=== PATIENT | female | born 1965 | race American Indian/Alaskan Native ===

== ENCOUNTER 2016-11-15 02:05 | Inpatient (IN) | payer OTHER ==
[2016-11-15] MEDS ORDERED: NACL 0.9% 1000 ML 1,000 ML ONE ×2 (02:34→07:48)
[2016-11-15 02:46] LABS: Basophils % (Auto) 0.6 % (0.0-1.8); Eosinophils % (Auto) 0.5 % (0.0-4.3); Hematocrit 44.8 % (30.3-42.9); Hemoglobin 14.6 gm/dl (10.1-14.3); Mean Corpuscular HGB Conc 33 % (30-34); Mean Corpuscular Hemoglobin 28 pg (28-32); Mean Corpuscular Volume 85 fl (79-97); Platelet Count 185 K/mm3 (140-440); Red Blood Count 5.28 M/mm3 (3.65-5.03); Red Cell Distribution Width 15.3 % (13.2-15.2); White Blood Count 8.7 K/mm3 (4.5-11.0)
[2016-11-15 03:01] LABS: Anion Gap 23 mmol/L; BUN/Creatinine Ratio 22.22; Blood Urea Nitrogen 20 mg/dL (7-17); Carbon Dioxide 21 mmol/L (22-30); Chloride 89.1 mmol/L (98-107); Potassium 5.1 mmol/L (3.6-5.0); Sodium 128 mmol/L (137-145)
[2016-11-15 03:09] LABS: Glucose 1079 mg/dL (65-100)
[2016-11-15] MEDS ORDERED: NACL 0.9% 1000 ML 1,000 ML IV ONE (03:09)
[2016-11-15 03:36] LABS: Bilirubin,Urine NEG (Negative); Blood,Urine NEG (Negative); Ketones,Urine TR mg/dL (Negative); Leukocyte Esterase,Urine TR (Negative); Nitrite,Urine NEG (Negative); Protein,Urine <15 mg/dL mg/dL (Negative); Urobilinogen,Urine < 2.0 mg/dL (<2.0)
--- NOTE | 2016-11-15 03:40 | Emergency Department Report ---
ED General Adult HPI - General Chief complaint: Hyperglycemia Stated complaint: HYPERGLYCEMIA Time Seen by Provider: 11/15/16 03:16 Source: patient, EMS (ems notes not available at time of chart dictation), RN notes reviewed Mode of arrival: Stretcher Limitations: No Limitations - History of Present Illness Initial comments: This is a 51-year-old female. She is previously unknown to me. She has a history of bipolar and diabetes. The patient is brought to the hospital by EMS for hypoglycemia, malaise and weakness. The patient was of mild headache, dizziness, nausea, vomiting, sensation of being very thirsty, urinary frequency. Headache has been present for weeks to months. Also complains of abdominal discomfort. Abdominal discomfort is off and on. The abdominal discomfort worsens with palpation and decreases with rest. -: Gradual Location: abdomen Severity scale (0 -10): 5 Quality: aching Consistency: intermittent Improves with: rest Worsens with: movement Associated Symptoms: headaches, loss of appetite, malaise, weakness - Related Data Allergies Allergy/AdvReac Type Severity Reaction Status Date / Time No Known Allergies Allergy Unverified 11/15/16 02:16 ED Review of Systems ROS: Stated complaint: HYPERGLYCEMIA Other details as noted in HPI Constitutional: malaise, weakness ENT: denies: epistaxis Respiratory: see HPI Cardiovascular: denies: chest pain Gastrointestinal: abdominal pain Genitourinary: frequency Musculoskeletal: denies: back pain Skin: denies: lesions Neurological: weakness Psychiatric: anxiety ED Past Medical Hx - Past Medical History Hx Diabetes: Yes Hx Psychiatric Treatment: Yes (Bipolar) - Social History Smoking Status: Current Every Day Smoker Substance Use Type: None ED Physical Exam - General Limitations: No Limitations General appearance: alert, in no apparent distress - Head Head exam: Present: atraumatic, normocephalic - Eye Eye exam: Present: normal appearance, EOMI. Absent: nystagmus - ENT ENT exam: Present: normal exam, normal orophraynx, mucous membranes moist, normal external ear exam - Neck Neck exam: Present: normal inspection, full ROM. Absent: tenderness, meningismus - Respiratory Respiratory exam: Present: normal lung sounds bilaterally. Absent: respiratory distress, wheezes, rales, rhonchi, stridor - Cardiovascular Cardiovascular Exam: Present: regular rate, normal rhythm, normal heart sounds. Absent: bradycardia, tachycardia, irregular rhythm, systolic murmur, diastolic murmur, rubs, gallop - GI/Abdominal GI/Abdominal exam: Present: soft, tenderness, normal bowel sounds, other. Absent: distended, guarding, rebound, rigid, pulsatile mass - Extremities Exam Extremities exam: Present: normal inspection, full ROM, normal capillary refill. Absent: tenderness, pedal edema, joint swelling, calf tenderness - Back Exam Back exam: Present: normal inspection, full ROM. Absent: tenderness, CVA tenderness (R), CVA tenderness (L), muscle spasm, paraspinal tenderness, vertebral tenderness - Neurological Exam Neurological exam: Present: alert, oriented X3, normal gait, other (Extraocular movements intact. Tongue midline. No facial droop. Facial sensation intact to light touch in the V1, V2, V3 distribution bilaterally. 5 and 5 strength in 4 extremities.. Sensation is intact to light touch in 4 extremities.). Absent : motor sensory deficit - Psychiatric Psychiatric exam: Present: normal affect, normal mood - Skin Skin exam: Present: warm, dry, intact, normal color. Absent: rash ED Course Vital Signs 11/15/16 02:29 Temperature 98.1 F Pulse Rate 85 Respiratory 16 Rate Blood Pressure 152/78 [Right] O2 Sat by Pulse 100 Oximetry - Reevaluation(s) Reevaluation #1: 11/15/16 05:42 Differential diagnosis: Pneumonia, urinary tract infection, diabetic ketoacidosis, intra-abdominal infection, hyperosmolar state Assessment and plan: 51-year-old female with polyuria, polydipsia, market hyperglycemia with glucose greater than 1000, Dr. Calero with diabetic ketoacidosis, but consistent and suggestive of hyperosmolar state. X-ray the chest is negative. Urinalysis is negative. Insulin drip is ordered, insulin dose is ordered, IV fluids are ordered. Has acute on chronic abdominal pain, highly doubt acute intra-abdominal disease, but a noncontrast CT scan of the abdomen and pelvis is ordered. The case is discussed with the Hospital physician, Dr. Epperson, who accepts the patient to his service. Inpatient team will follow up on CT scan of abdomen and pelvis. ED Medical Decision Making - Lab Data Result diagrams: 11/15/16 02:23 11/15/16 02:23 Vital Signs 11/15/16 02:29 Temperature 98.1 F Pulse Rate 85 Respiratory 16 Rate Blood Pressure 152/78 [Right] O2 Sat by Pulse 100 Oximetry Labs 11/15/16 11/15/16 11/15/16 02:23 02:23 02:23 WBC 8.7 RBC 5.28 H Hgb 14.6 H Hct 44.8 H MCV 85 MCH 28 MCHC 33 RDW 15.3 H Plt Count 185 Lymph % (Auto) 16.4 [place] % (Auto) 4.8 Eos % (Auto) 0.5 Baso % (Auto) 0.6 Lymph # 1.4 [place] # 0.4 Eos # 0.0 Baso # 0.1 Seg Neutrophils % 77.7 H Seg Neutrophils # 6.8 VBG pH 7.336 Sodium 128 L Potassium 5.1 H Chloride 89.1 L Carbon Dioxide 21 L Anion Gap 23 BUN 20 H Creatinine 0.9 Estimated GFR > 60 BUN/Creatinine Ratio 22.22 Glucose 1079 H* Calcium 10.0 Total Bilirubin Direct Bilirubin Indirect Bilirubin AST ALT Alkaline Phosphatase Total Protein Albumin Albumin/Globulin Ratio Lipase Urine Color Urine Turbidity Urine pH Ur Specific Ayr Urine Protein Urine Glucose (UA) Urine Ketones Urine Blood Urine Nitrite Urine Bilirubin Urine Urobilinogen Ur Leukocyte Esterase Urine WBC (Auto) Urine RBC (Auto) U Epithel Cells (Auto) 11/15/16 11/15/16 02:29 04:00 WBC RBC Hgb Hct MCV MCH MCHC RDW Plt Count Lymph % (Auto) [place] % (Auto) Eos % (Auto) Baso % (Auto) Lymph # [place] # Eos # Baso # Seg Neutrophils % Seg Neutrophils # VBG pH Sodium Potassium Chloride Carbon Dioxide Anion Gap BUN Creatinine Estimated GFR BUN/Creatinine Ratio Glucose Calcium Total Bilirubin 0.8 Direct Bilirubin < 0.2 Indirect Bilirubin 0.6 AST 6 ALT 12 Alkaline Phosphatase 163 H Total Protein 7.4 Albumin 4.1 Albumin/Globulin Ratio 1.2 Lipase 17 Urine Color Colorless Urine Turbidity Clear Urine pH 7.0 Ur Specific Ayr 1.026 Urine Protein <15 mg/dl Urine Glucose (UA) >=500 Urine Ketones Tr Urine Blood Neg Urine Nitrite Neg Urine Bilirubin Neg Urine Urobilinogen < 2.0 Ur Leukocyte Esterase Tr Urine WBC (Auto) 2.0 Urine RBC (Auto) 1.0 U Epithel Cells (Auto) < 1.0 - Radiology Data Radiology results: pending, report reviewed, image reviewed interpreted by me: X-ray of the chest is negative for acute disease. Noncontrast CT scan of the abdomen and pelvis interpretation is pending at this time. Critical Care Time: Yes Critical care time in (mins) excluding proc time.: 35 Critical care attestation.: If time is entered above; I have spent that time in minutes in the direct care of this critically ill patient, excluding procedure time. Critical Care Time: Critical care time includes multiple bedside evaluations, interpretation of laboratory studies, radiology studies, time spent managing patient with critically elevated blood sugar requiring initiation of insulin drip. This does not include procedure time. ED Disposition Clinical Impression: Hyperosmolar non-ketotic state in patient with type 2 diabetes mellitus Disposition: OP ADMITTED IP TO THIS HOSP Is pt being admited?: Yes Condition: Good Instructions: Diabetes Mellitus Type 2 in Adults (ED) Referrals: PRIMARY CARE, [Primary Care Provider] - 3-5 Days
[2016-11-15] MEDS ORDERED: ZOFRAN IV PRN (04:59)
[2016-11-15] MEDS ORDERED: MILK OF MAGNESIA PO PRN (04:59)
[2016-11-15] MEDS ORDERED: DULCOLAX PR PRN (04:59)
[2016-11-15] MEDS ORDERED: D50W (25GM) IV PRN (04:59)
[2016-11-15] MEDS ORDERED: NovoLIN R 100 UNITS in NACL 0.9% 99 ML IV SCH (05:00)
[2016-11-15] MEDS ORDERED: PROAIR IH PRN (05:03)
--- NOTE | 2016-11-15 05:11 | History and Physical Report ---
History of Present Illness Date of examination: 11/15/16 Chief complaint: Urinary frequency and excessive thirst and weakness for 1 week History of present illness: 51-year-old obese -[place]i female with history of type 2 diabetes for the past 1 year, I Polar disorder, asthma and peptic ulcer disease presents to the emergency department with above complaint was found to have a blood sugar of more than 1000. She is admitted for management of uncontrolled type 2 diabetes. Patient appears to be noncompliant with her diabetes medicine. She was started on metformin a month ago but she quit taking as it was, causing abdominal pain he time she takes it the past 1 week she has been having excessive urination excessive thirst and since yesterday started vomiting. She denies any fever or chills sore throat dysphagia nasal congestion or headaches. She denies any abdominal pain hematemesis melena. As stated above she had one episode of vomiting yesterday and 1 today Denies any exertional chest pain palpitations or syncope Denies cough or shortness of breath Denies dysuria, hematuria Past History Past Medical History: diabetes, other (asthma, bipolar disorder, peptic ulcer disease) Past Surgical History: No surgical history Social history: smoking Family history: diabetes Medications and Allergies Allergies Allergy/AdvReac Type Severity Reaction Status Date / Time No Known Allergies Allergy Unverified 11/15/16 02:16 Active Meds: Active Medications Acetaminophen (Tylenol) 650 mg PO Q4H PRN PRN Reason: Pain MILD(1-3)/Fever >100.5/LAMA Albuterol (Proair) 2 puff IH QIDRT PRN PRN Reason: Shortness Of Breath Bisacodyl (Dulcolax) 10 mg UT QDAY PRN PRN Reason: Constipation unrelieved by MOM Dextrose (D50w (25gm)) 0 ml IV PRN PRN PRN Reason: Hypoglycemia Glipizide (Glucotrol) 5 mg PO DAILY JESÚS Heparin Sodium (Porcine) (Heparin) 5,000 unit SUB-Q Q8HR JESÚS Potassium Chloride/Dextrose/Sod Cl (D5w/0.45% Nacl/Kcl 20 Meq) 20 meq in 1,000 mls @ 125 mls/hr IV DIRECT JESÚS Insulin Human Regular 100 (units/ Sodium Chloride) 100 mls @ 1 mls/hr IV TITR JESÚS; 1 UNITS/HR PRN Reason: Protocol Magnesium Hydroxide (Milk Of Magnesia) 30 ml PO Q4H PRN PRN Reason: Constipation Ondansetron HCl (Zofran) 4 mg IV Q8H PRN PRN Reason: N/V unrelieved by Reglan Pantoprazole Sodium (Protonix) 40 mg PO DAILY JESÚS Review of Systems All systems: negative (as stated above in the history of present illness) Exam - Constitutional Vitals: Temp Pulse Resp BP Pulse Ox 98.1 F 85 16 152/78 100 11/15/16 02:29 11/15/16 02:29 11/15/16 02:29 11/15/16 02:29 11/15/16 02:29 General appearance: Present: no acute distress, well-nourished, obese - EENT Eyes: Present: PERRL, EOM intact ENT: hearing intact, clear oral mucosa, no thrush - Neck Neck: Present: supple, normal ROM. Absent: masses or JVD - Respiratory Respiratory effort: normal Respiratory: bilateral: CTA - Cardiovascular Rhythm: regular Heart Sounds: Present: S1 & S2 - Extremities Extremities: No edema - Abdominal General gastrointestinal: Present: soft, non-tender. Absent: hepatomegaly, splenomegaly - Rectal Rectal Exam: deferred - Integumentary Integumentary: Present: clear - Musculoskeletal Musculoskeletal: strength equal bilaterally - Psychiatric Psychiatric: appropriate mood/affect - Neurologic Neurologic: no focal deficits, moves all extremities Results - Labs CBC & Chem 7: 11/15/16 02:23 11/15/16 02:23 Labs: Abnormal lab results 11/15/16 11/15/16 Range/Units 02:23 02:23 RBC 5.28 H (3.65-5.03) M/mm3 Hgb 14.6 H (10.1-14.3) gm/dl Hct 44.8 H (30.3-42.9) % RDW 15.3 H (13.2-15.2) % Seg Neutrophils % 77.7 H (40.0-70.0) % Sodium 128 L (137-145) mmol/L Potassium 5.1 H (3.6-5.0) mmol/L Chloride 89.1 L (98-107) mmol/L Carbon Dioxide 21 L (22-30) mmol/L BUN 20 H (7-17) mg/dL Glucose 1079 H* (65-100) mg/dL Assessment and Plan - Patient Problems (1) Hyperosmolar non-ketotic state in patient with type 2 diabetes mellitus Current Visit: Yes Status: Acute Plan to address problem: Her blood sugar at the time of admission was 1079 Start the patient on intravenous insulin drip and we will admit the patient to intensive care unit Will wean off pins IV insulin per protocol as blood sugars drop We will also start the patient on glipizide We will hold metformin for now the patient is complaining of abdominal pain every time she takes it (2) Peptic ulcer disease Current Visit: Yes Status: Acute Plan to address problem: Start the patient on PPI (3) Asthma Current Visit: Yes Status: Acute Qualifiers: Asthma severity: A Asthma complication type: A Plan to address problem: Start the patient on albuterol inhaler as needed (4) Obesity (BMI 35.0-39.9 without comorbidity) Current Visit: Yes Status: Acute
[2016-11-15] MEDS ORDERED: PROVENTIL IH PRN (05:12)
[2016-11-15 05:27] LABS: Alanine Aminotransferase 12 units/L (7-56); Albumin 4.1 g/dL (3.9-5); Albumin/Globulin Ratio 1.2 %; Alkaline Phosphatase 163 units/L (35-129); Bilirubin,Total 0.8 mg/dL (0.1-1.2); Lipase 17 units/L (13-60); Total Protein 7.4 g/dL (6.3-8.2)
[2016-11-15 05:38] LABS: Bilirubin,Direct < 0.2 mg/dL (0-0.2); Bilirubin,Indirect 0.6 mg/dL
--- NOTE | 2016-11-15 05:59 | Cat Scan Report ---
FINAL REPORT PROCEDURE: CT ABDOMEN PELVIS WO CON TECHNIQUE: Computerized axial tomography of the abdomen and pelvis was performed without intravenous contrast. This study is performed without intravascular contrast material and its sensitivity for abdominal and pelvic pathology, including neoplasms, inflammation, abscess, free fluid, thrombosis, arterial dissection and infarction, is reduced compared with a contrast enhanced study. HISTORY: abd pain COMPARISON: No prior studies are available for comparison. FINDINGS: Visualized lower thorax: No significant abnormality. Liver: Normal size and attenuation. Spleen: Normal size and attenuation. Gallbladder and biliary system: Normal. Pancreas: Normal. Adrenals: Normal. Kidneys: Both kidneys have normal size. No hydronephrosis. There is a 2 millimeter stone in the right renal cortex. No renal masses.. GI tract: The stomach is normal. The small bowel has a normal caliber without obstruction. No ileus or enteritis. The cecum, appendix and colon are normal.. Lymph nodes and mesentery: Normal. Vasculature: Normal. Bladder: The urinary bladder is moderately distended.. Reproductive organs: The uterus is enlarged. In the fundus of the uterus there is mixed attenuation with some calcifications. This area is most consistent with a large fibroid measuring up to 4.5 centimeters. The adnexal regions are normal.. Peritoneum: No free fluid. Musculoskeletal structures: No significant abnormality. Other: None. IMPRESSION: There is no evidence of intestinal or urinary tract obstruction. No ileus or enteritis. The appendix is normal. The uterus is enlarged with a suspected large fibroid in the fundus of the uterus. Further evaluation with ultrasound may be of benefit. Right renal calculus measuring 2 millimeters is noted. No hydronephrosis..
[2016-11-15 06:13] LABS: Anion Gap 22 mmol/L; BUN/Creatinine Ratio 23.75; Blood Urea Nitrogen 19 mg/dL (7-17); Calcium 10.2 mg/dL (8.4-10.2); Carbon Dioxide 21 mmol/L (22-30); Chloride 95.7 mmol/L (98-107); Phosphorous 4.3 mg/dL (2.5-4.5); Potassium 4.7 mmol/L (3.6-5.0); Sodium 134 mmol/L (137-145)
[2016-11-15 06:33] LABS: Glucose 807 mg/dL (65-100)
--- NOTE | 2016-11-15 06:37 | Admit Criteria Form ---
Admission Criteria Documentation: DIABETES Clinical Indications for Admission to Inpatient Care (Place 'X' for any and all applicable criteria): Admission is indicated by presence of ALL (if I & II) or ANY ONE (if III or IV) of the following (1)(2)(3)(4): [X]I. Diabetes is uncontrolled as indicated by ANY ONE of the following: [ ]a) Diabetic ketoacidosis as indicated by ALL of the following (8): [ ]i) Hyperglycemia (eg, plasma glucose greater than 200 mg/ dL (11.1 mmol/L)) [ ]ii) Acidosis (eg, arterial pH less than 7.30, serum bicarbonate level less than 15 mEq/L (mmol/L)) [ ]iii) Moderate ketonuria or ketonemia [X]b) Hyperglycemic hyperosmolar state as indicated by ALL of the following(9)(10): [ ]i) Neurologic dysfunction (eg, stupor, coma, hemiparesis , seizure)(13) [X]ii) Plasma glucose greater than 600 mg/dL (33.3 mmol/L) [ ]iii) Serum osmolality greater than 320 mOsm/kg (mmol/kg) [X]c) Severe signs or symptoms secondary to hyperglycemia indicated by ANY ONE of the following: [ ]i) Altered mental status(10) [ ]ii) Significant hypovolemia or dehydration [ ]iii) Intractable nausea or vomiting [ ]iv) Unexplained fever or severe infection [X]v) Severe electrolyte abnormality (eg, hypokalemia, hyperkalemia, hypernatremia) [ ]II. Management at other levels of care (Also use Diabetes: Observation Care as appropriate) is not feasible because of ANY ONE of the following: [ ]a) Condition was not adequately corrected with treatment at other levels of care. [ ]b) Treatment at other levels of care is not appropriate because of condition severity (eg, hyperosmolar coma). [ ]III. Contraindications and/or Inappropriate clinical situations for Observational Care in patients with Diabetes, when ANY ONE of the following is required: [ ]a) Patient require specific diagnostic workup or therapeutic intervention 22 [ ]b) Patient with abnormal vital signs or altered mental status 23 [ ]IV. General contraindications and/or Inappropriate clinical situations for Observational Care in patients with Diabetes, when ANY ONE of the following is required: [ ]a) Prediction of prolongation of LOS based on ANY ONE of the following may be considered as a contraindication for observational care 2, 3, 4, 5, 6, 7, 8, 9, 10, 11 [ ]i) Age > 65 yrs. [ ]ii) Patient arriving by ambulance [ ]iii) Patient with high acuity [ ]iv) Patient requiring vital sign monitoring [ ]v) Patient on IV medication [ ]b) Systolic blood pressures 180mmHg 3,12 [ ]c) Patient with altered mental status including delirium and other alteration of consciousness, (3) [ ]d) Patient whose discharge disposition will be to a senior care home or rehabilitation home should not be managed in Emergency Department Observation Unit. CMS rule requires 3 days hospital stay before such placement.3,13 [ ]e) Patient with failure to thrive due to broad array of etiologies 3,16,17 [ ]f) Inability to ambulate 3,14 Extended stay beyond goal length of stay may be needed for(3)(20): [ ]a) Treatment of precipitating causes [ ]b) Development of hypoglycemia [ ]c) Complications of treatment [ ]d) Complications of decompensated diabetes (eg, acute gastric dilatation, persistent metabolic or neurologic derangement) [ ]e) Active Comorbidities [ ]f) Older patients( 65 years or older) The original [employer] content created by [employer] has been revised. The portions of the content which have been revised are identified through the use of italic text or in bold,and [facility] has neither reviewed nor approved the modified material. All other unmodified content is copyright [employer]. Please see references footnoted in the original [facility] edition 2016 Admission Criteria Met: Yes
[2016-11-15] MEDS: HEPARIN SUB-Q SCH ×3 (06:46→20:51)
--- NOTE | 2016-11-15 07:25 | XRay Report ---
AP CHEST: HISTORY: Hyperglycemia AP view of the chest demonstrates a normal mediastinal and cardiac contour with clear lungs and normal bony and soft tissue structures. IMPRESSION: Unremarkable AP chest.
[2016-11-15] MEDS ORDERED: GLUCOTROL PO SCH (08:00)
[2016-11-15] MEDS ORDERED: NACL 0.9% 1000 ML 1,000 ML IV SCH ×2 (08:00)
--- NOTE | 2016-11-15 08:02 | Event Note ---
Date: 11/15/16 patient is 51-year-old with diabetes mellitus type 2 with hyperosmolar nonketotic state. Her initial glucose was 1079 on admission. She was seen and examined. She is now on insulin drip and IV fluids. Will continue to monitor serial BMPs.
[2016-11-15] MEDS: PROTONIX PO SCH (10:51)
--- NOTE | 2016-11-15 11:08 | Consultation ---
History of Present Illness Consult date: 11/15/16 Requesting physician: THALIA DACOSTA Reason for consult: other (Hyperosmolar non ketotic Coma) History of present illness: PULMONARY/CCM CONSULT (Full note dictated # [id number]) Please see dictated notes for full details Past History Past Medical History: diabetes, other (asthma, bipolar disorder, peptic ulcer disease) Past Surgical History: No surgical history Social history: smoking Family history: diabetes Medications and Allergies Allergies Allergy/AdvReac Type Severity Reaction Status Date / Time No Known Allergies Allergy Unverified 11/15/16 02:16 Home Medications Medication Instructions Recorded Confirmed Last Taken Type ALBUTEROL Inhaler [Proair] 2 puff IH QID PRN 11/15/16 11/15/16 11/14/16 History Esomeprazole Magnesium [Nexium 20 mg PO DAILY 11/15/16 11/15/16 11/14/16 History 24Hr] metFORMIN [Glucophage] 500 mg PO BID 11/15/16 11/15/16 11/14/16 History metroNIDAZOLE [Flagyl] 500 mg PO Q12HR 11/15/16 11/15/16 11/14/16 History Active Meds: Active Medications Acetaminophen (Tylenol) 650 mg PO Q4H PRN PRN Reason: Pain MILD(1-3)/Fever >100.5/LAMA Albuterol (Proventil) 2.5 mg IH QIDRT PRN PRN Reason: Shortness Of Breath Bisacodyl (Dulcolax) 10 mg [place] QDAY PRN PRN Reason: Constipation unrelieved by MOM Dextrose (D50w (25gm)) 0 ml IV PRN PRN PRN Reason: Hypoglycemia Glipizide (Glucotrol) 5 mg PO QAM@0800 [facility] Last Admin: 11/15/16 10:30 Dose: Not Given Heparin Sodium (Porcine) (Heparin) 5,000 unit SUB-Q Q8HR [facility] Last Admin: 11/15/16 06:46 Dose: 5,000 unit Potassium Chloride/Dextrose/Sod Cl (D5w/0.45% Nacl/Kcl 20 Meq) 20 meq in 1,000 mls @ 125 mls/hr IV DIRECT JESÚS Insulin Human Regular 100 (units/ Sodium Chloride) 100 mls @ 1 mls/hr IV TITR JESÚS; 1 UNITS/HR PRN Reason: Protocol Last Titration: 11/15/16 10:44 Dose: 5 units/hr, 5 mls/hr Sodium Chloride (Nacl 0.9% 1000 Ml) 1,000 mls @ 200 mls/hr IV DIRECT JESÚS Last Admin: 11/15/16 08:05 Dose: 200 mls/hr Magnesium Hydroxide (Milk Of Magnesia) 30 ml PO Q4H PRN PRN Reason: Constipation Ondansetron HCl (Zofran) 4 mg IV Q8H PRN PRN Reason: N/V unrelieved by Reglan Pantoprazole Sodium (Protonix) 40 mg PO DAILY [facility] Last Admin: 11/15/16 10:51 Dose: 40 mg Physical Examination Vital signs: Vital Signs Pulse Resp Pulse Ox 90 26 H 90 11/15/16 02:22 11/15/16 02:22 11/15/16 02:22 Results - Laboratory Findings CBC and BMP: 11/16/16 05:29 11/16/16 05:29 Abnormal lab findings: Abnormal Labs 11/15/16 11/15/16 11/15/16 05:08 05:08 07:33 Sodium 134 L Chloride 95.7 L Carbon Dioxide 21 L BUN 19 H Glucose 807 H* 604 H* POC Glucose Hemoglobin A1c 10.4 H 11/15/16 07:42 Sodium Chloride Carbon Dioxide BUN Glucose POC Glucose > 500 H Hemoglobin A1c
[2016-11-15 11:31] LABS: Anion Gap 20 mmol/L; BUN/Creatinine Ratio 26.66; Blood Urea Nitrogen 16 mg/dL (7-17); Carbon Dioxide 21 mmol/L (22-30); Chloride 105.2 mmol/L (98-107); Glucose 240 mg/dL (65-100); Potassium 3.9 mmol/L (3.6-5.0); Sodium 142 mmol/L (137-145)
[2016-11-15] MEDS: D5W/0.45% NACL/KCL 20 MEQ 20 MEQ/1,000 ML BAG IV SCH ×2 (12:08→20:49)
[2016-11-15 14:28] LABS: Anion Gap 18 mmol/L; Blood Urea Nitrogen 14 mg/dL (7-17); Calcium 9.6 mg/dL (8.4-10.2); Carbon Dioxide 22 mmol/L (22-30); Chloride 105.1 mmol/L (98-107); Glucose 161 mg/dL (65-100); Potassium 4.1 mmol/L (3.6-5.0); Sodium 141 mmol/L (137-145)
[2016-11-15] MEDS: TYLENOL PO PRN ×2 (17:39→21:13)
[2016-11-15] MEDS ORDERED: XANAX PO ONE (21:27)
[2016-11-15] MEDS: HABITROL TD SCH (21:44)
[2016-11-15 22:29] LABS: Anion Gap 17 mmol/L; Blood Urea Nitrogen 12 mg/dL (7-17); Carbon Dioxide 18 mmol/L (22-30); Chloride 106.8 mmol/L (98-107); Glucose 140 mg/dL (65-100); Potassium 3.8 mmol/L (3.6-5.0); Sodium 138 mmol/L (137-145)
[2016-11-16] MEDS: HEPARIN SUB-Q SCH ×4 (01:21→23:26)
[2016-11-16] MEDS: D5W/0.45% NACL/KCL 20 MEQ 20 MEQ/1,000 ML BAG IV SCH (05:31)
[2016-11-16 05:55] LABS: Basophils % (Auto) 0.5 % (0.0-1.8); Eosinophils % (Auto) 2.4 % (0.0-4.3); Hematocrit 40.2 % (30.3-42.9); Hemoglobin 13.9 gm/dl (10.1-14.3); Mean Corpuscular HGB Conc 35 % (30-34); Mean Corpuscular Hemoglobin 28 pg (28-32); Mean Corpuscular Volume 81 fl (79-97); Platelet Count 188 K/mm3 (140-440); Red Blood Count 4.96 M/mm3 (3.65-5.03); Red Cell Distribution Width 14.9 % (13.2-15.2); White Blood Count 9.2 K/mm3 (4.5-11.0)
[2016-11-16 06:16] LABS: Anion Gap 17 mmol/L; BUN/Creatinine Ratio 16.66; Blood Urea Nitrogen 10 mg/dL (7-17); Calcium 8.3 mg/dL (8.4-10.2); Carbon Dioxide 22 mmol/L (22-30); Chloride 105.7 mmol/L (98-107); Glucose 151 mg/dL (65-100); Potassium 3.5 mmol/L (3.6-5.0); Sodium 141 mmol/L (137-145)
--- NOTE | 2016-11-16 08:14 | Progress Note ---
Assessment and Plan Assessment and plan: Hyperosmolar non-ketotoic state. Blood glucose was 1079 on admission. She has been on insulin drip and iv fluids. Blood glucose is now controlled, most recent blood [id number]. We'll discontinue insulin drip. Start subcutaneous Novolin 70/30 twice daily. Transfer to medical surgical floor. Hypokalemia. On iv NS+20meq K Peptic ulcer disease, history. On Protonix daily. Asthma, stable. Bipolar disorder DVT prophylaxis with heparin subcutaneous. Full CODE STATUS History Interval history: Feels better, no more vomiting, blood glucose improved Hospitalist Physical - Physical exam Narrative exam: Gen: Not in acute distress,obese HEENT: Normocephalic, atraumatic Neck: supple, no JVD Lungs:Lungs clear to auscultation, bilaterally, no crackles or wheeze Heart S1-S2 regular, no murmurs rubs or gallop, Abdomen: soft, non tender, non distended, normal bowel sounds , Ext: No edema, clubbing or cyanosis. Neuro: Awake.alert, oriented x 3, no focal neurological sign - Constitutional Vitals: Temp Pulse Resp BP Pulse Ox 97.9 F 72 17 104/56 99 11/16/16 00:15 11/16/16 07:31 11/16/16 07:31 11/16/16 07:31 11/16/16 07:31 Results - Labs CBC & Chem 7: 11/16/16 05:29 11/16/16 05:29 Labs: Laboratory Last Values WBC 9.2 K/mm3 (4.5-11.0) 11/16/16 05:29 RBC 4.96 M/mm3 (3.65-5.03) 11/16/16 05:29 Hgb 13.9 gm/dl (10.1-14.3) 11/16/16 05:29 Hct 40.2 % (30.3-42.9) 11/16/16 05:29 MCV 81 fl (79-97) D 11/16/16 05:29 MCH 28 pg (28-32) 11/16/16 05:29 MCHC 35 % (30-34) H 11/16/16 05:29 RDW 14.9 % (13.2-15.2) 11/16/16 05:29 Plt Count 188 K/mm3 (140-440) 11/16/16 05:29 Lymph % (Auto) 47.4 % (13.4-35.0) H 11/16/16 05:29 Brown % (Auto) 4.4 % (0.0-7.3) 11/16/16 05:29 Eos % (Auto) 2.4 % (0.0-4.3) 11/16/16 05:29 Baso % (Auto) 0.5 % (0.0-1.8) 11/16/16 05:29 Lymph # 4.4 K/mm3 (1.2-5.4) 11/16/16 05:29 Brown # 0.4 K/mm3 (0.0-0.8) 11/16/16 05:29 Eos # 0.2 K/mm3 (0.0-0.4) 11/16/16 05:29 Baso # 0.0 K/mm3 (0.0-0.1) 11/16/16 05:29 Seg Neutrophils % 45.3 % (40.0-70.0) 11/16/16 05:29 Seg Neutrophils # 4.2 K/mm3 (1.8-7.7) 11/16/16 05:29 VBG pH 7.336 (7.320-7.420) 11/15/16 02:23 Sodium 141 mmol/L (137-145) 11/16/16 05:29 Potassium 3.5 mmol/L (3.6-5.0) L 11/16/16 05:29 Chloride 105.7 mmol/L (98-107) 11/16/16 05:29 Carbon Dioxide 22 mmol/L (22-30) 11/16/16 05:29 Anion Gap 17 mmol/L 11/16/16 05:29 BUN 10 mg/dL (7-17) 11/16/16 05:29 Creatinine 0.6 mg/dL (0.7-1.2) L 11/16/16 05:29 Estimated GFR > 60 ml/min 11/16/16 05:29 BUN/Creatinine Ratio 16.66 % 11/16/16 05:29 Glucose 151 mg/dL (65-100) H 11/16/16 05:29 POC Glucose 158 (70-105) H 11/16/16 06:20 Hemoglobin A1c 10.4 % (4-6) H 11/15/16 05:08 Calcium 8.3 mg/dL (8.4-10.2) L 11/16/16 05:29 Phosphorus 4.3 mg/dL (2.5-4.5) 11/15/16 05:08 Magnesium 2.0 mg/dL (1.7-2.3) 11/15/16 05:08 Total Bilirubin 0.8 mg/dL (0.1-1.2) 11/15/16 04:00 Direct Bilirubin < 0.2 mg/dL (0-0.2) 11/15/16 04:00 Indirect Bilirubin 0.6 mg/dL 11/15/16 04:00 AST 6 units/L (5-40) 11/15/16 04:00 ALT 12 units/L (7-56) 11/15/16 04:00 Alkaline Phosphatase 163 units/L (35-129) H 11/15/16 04:00 Total Protein 7.4 g/dL (6.3-8.2) 11/15/16 04:00 Albumin 4.1 g/dL (3.9-5) 11/15/16 04:00 Albumin/Globulin Ratio 1.2 % 11/15/16 04:00 Lipase 17 units/L (13-60) 11/15/16 04:00 Urine Color Colorless (Yellow) 11/15/16 02:29 Urine Turbidity Clear (Clear) 11/15/16 02:29 Urine pH 7.0 (5.0-7.0) 11/15/16 02:29 Ur Specific [place] 1.026 (1.003-1.030) 11/15/16 02:29 Urine Protein <15 mg/dl mg/dL (Negative) 11/15/16 02:29 Urine Glucose (UA) >=500 mg/dL (Negative) 11/15/16 02:29 Urine Ketones Tr mg/dL (Negative) 11/15/16 02:29 Urine Blood Neg (Negative) 11/15/16 02:29 Urine Nitrite Neg (Negative) 11/15/16 02:29 Urine Bilirubin Neg (Negative) 11/15/16 02:29 Urine Urobilinogen < 2.0 mg/dL (<2.0) 11/15/16 02:29 Ur Leukocyte Esterase Tr (Negative) 11/15/16 02:29 Urine WBC (Auto) 2.0 /HPF (0.0-6.0) 11/15/16 02:29 Urine RBC (Auto) 1.0 /HPF (0.0-6.0) 11/15/16 02:29 U Epithel Cells (Auto) < 1.0 /HPF (0-13.0) 11/15/16 02:29
[2016-11-16] MEDS: HABITROL TD SCH (09:15)
[2016-11-16] MEDS: PROTONIX PO SCH (09:15)
[2016-11-16] MEDS: NS/KCL 20MEQ 20 MEQ/1,000 ML BAG IV SCH (10:35)
--- NOTE | 2016-11-16 11:41 | Event Note ---
Date: 11/16/16 Seen and examined at bedside; 24 hour events reviewed; nursing and respiratory care staff consulted; off IV insulin and doing well; no N/V/F/C - transfer to medical floor - will see prn
--- NOTE | 2016-11-16 12:51 | Consultation ---
CONSULTING PHYSICIAN: Jose Epperson MD REASON FOR CONSULTATION: Need for ICU admission for intravenous insulin administration. CHIEF COMPLAINT AND HISTORY OF PRESENT ILLNESS: The patient is a 51-year-old -[place] male with past medical history significant in this context for diagnosis of diabetes for which she tells me she was started on oral hypoglycemics including metformin, it caused a lot of abdominal symptoms, so she stopped taking it for a few weeks. She came in now complaining of nausea, vomiting, generalized malaise, weakness, polyuria, polydipsia, was essentially found to be in a hyperosmolar state with a serum glucose of about 1079. She was certainly requiring admission to the Intensive Care Unit for IV insulin admission. When I stopped to see her, she was resting in bed. She was still on the IV insulin pump. Denied any acute chest pains. No more nausea. Denied any more abdominal pains. With regards to tobacco use/abuse, she does have a 10+ pack year tobacco smoking history. That really is as much of the history of presentation as I have. PAST MEDICAL HISTORY: Bipolar disorder, diabetes. She is obese. PAST SURGICAL HISTORY: Unknown. MEDICATIONS: She was on at the time I stopped by to see her, according to the medication administration record included the following: Albuterol treatments 2.5 mg inhaled q.i.d. p.r.n. shortness of breath or wheezing, p.r.n. Dulcolax, heparin 5000 units subcutaneous q.8h. She was on IV insulin drip I think about 3 units per hour at the time, Zofran 4 mg IV q.8h. p.r.n. nausea, Protonix 40 mg p.o. daily, and she was on sodium chloride with potassium drip at 100 mL per hour. ALLERGIES: No known drug allergies. DIET: Obese lady. Denies significant weight loss or gain in preceding few weeks to months. FAMILY AND SOCIAL HISTORY: Lives in the community. Denies alcohol or illicit drug use or abuse. She does have a 10+ pack year tobacco smoking history. REVIEW OF SYSTEMS: No loss of consciousness. No new onset seizures. No new onset focal weakness. No gross hematochezia or melena. No gross hematuria or dysuria. No hematemesis. She had some emesis. No hemoptysis. No palpitations. Complete review of systems obtained. Pertinent positives and/or negatives as in body of history above, otherwise noncontributory. PHYSICAL EXAMINATION: VITAL SIGNS: At presentation, she was afebrile, temperature 98.1 Fahrenheit with a pulse of 90, respiratory rate of 26, blood pressure 152/78, oxygen sats are 100%, inspired oxygen concentration was not recorded. HEAD, EYES, EARS, NOSE, AND THROAT: Pupils equal, round, about 3 mm, reactive to light. Extraocular muscle movements were intact. Grossly, there were no palpable lymph nodes in the supraclavicular or submandibular lymph node chains. She had some mild left submandibular tenderness that she stated was getting better. Oropharynx is Mallampati #2-3. oropharynx, no significant posterior oropharyngeal erythema or exudation. LUNGS: Auscultation of both lung ramos, diminished bilateral breath sounds, but clear. HEART: Heart sounds 1 and 2 are heard, regular rate and rhythm at the time of my evaluation. ABDOMEN: Soft, full, bowel sounds are positive, nontender. EXTREMITIES: Without overt digital clubbing, cyanosis, or pedal edema. NEUROLOGIC: The exam was grossly nonfocal. LABORATORY DATA: From my review are as follows: White cell count on admission 8700 with a hemoglobin of 14.6, hematocrit of 44.8, platelets 185. Venous blood gas showed a pH of 7.34. Serum sodium was 128, potassium , chloride 89, bicarbonate 21, BUN 20, creatinine 0.9, and glucose of 1079. Urine ketones were not detected. Urinalysis: Nitrites negative, leukocyte esterase was trace, only 2 white cells per high power field. Radiographic studies have been pulled up. I have reviewed the radiologist's interpretation. A chest x-ray was done. It was described as an unremarkable chest x-ray. CT of the abdomen and pelvis was also done and again was essentially unremarkable except for right renal calculus, no hydronephrosis and I suspected large uterine fibroid. ASSESSMENT AND PLAN: We have a middle-aged lady in with hyperosmolar state and hyperglycemia who is appropriately on an IV insulin drip. She appears ready to transition to the long-acting insulin. She is on GI prophylaxis. She is on DVT prophylaxis. Nicotine patch will be placed. We will put her on a 21 mg per day patch. Tobacco cessation has been counseled. Flu and pneumonia vaccination will be per protocol. Hopefully, she is quickly transitioned off the drip and can be transferred to regular floor. Thank you very much for the consult Dr. Epperson. We will follow along. We will make further recommendations as picture progresses/becomes clearer while she is in the intensive care unit. JOB# [id number] TAJ/NTS
[2016-11-16] MEDS: NOVOLOG SUB-Q SCH ×3 (13:43→23:22)
[2016-11-16] MEDS ORDERED: DIFLUCAN PO ONE (19:00)
[2016-11-17 06:39] LABS: Chloride 107.5 mmol/L (98-107); Potassium 3.4 mmol/L (3.6-5.0); Sodium 141 mmol/L (137-145)
[2016-11-17] MEDS: HEPARIN SUB-Q SCH ×2 (06:40→13:12)
[2016-11-17] MEDS: TYLENOL PO PRN (06:45)
[2016-11-17] MEDS ORDERED: K-DUR PO ONE (08:00)
[2016-11-17] MEDS: NOVOLOG SUB-Q SCH ×2 (08:00→13:11)
--- NOTE | 2016-11-17 08:10 | Discharge Summary ---
Providers - Providers Date of Admission: 11/15/16 05:00 Date of discharge: 11/17/16 Attending physician: GABRIELLE AMOS 11/15/16 05:08 Consult to Physician [CONS] Stat Consulting Provider: POLO KELLER Reason For Exam: ccu admit Place consult to:: answering service Notified:: y Time called:: 05:08 Primary care physician: UNIT TECHNICIAN Hospitalization Condition: Good Disposition: DISCHARGED TO HOME OR SELFCARE - Discharge Diagnoses (1) Asthma Status: Acute Qualifiers: Asthma severity: A Asthma complication type: A (2) Hyperosmolar non-ketotic state in patient with type 2 diabetes mellitus Status: Acute (3) Peptic ulcer disease Status: Acute Exam - Constitutional Vitals: Temp Pulse Resp BP Pulse Ox 98.5 F 93 H 18 114/59 96 11/16/16 22:00 11/16/16 22:00 11/16/16 22:00 11/16/16 22:00 11/16/16 22:00 Plan Activity: no restrictions Diet: low fat, low cholesterol, low salt, diabetic Additional Instructions: 1.Follow up with PCP in 1 week Follow up with: PRIMARY CARE, [Primary Care Provider] - 3-5 Days Prescriptions: Insulin Aspart Protam & Aspart [NovoLOG Mix 70-30 Flexpen] 12 unit SQ BID #1 pen
[2016-11-17 08:43] VITALS: BP 144/78
[2016-11-17 09:11] LABS: Anion Gap 16 mmol/L; Blood Urea Nitrogen 9 mg/dL (7-17); Carbon Dioxide 21 mmol/L (22-30); Glucose 113 mg/dL (65-100)
[2016-11-17] MEDS: HABITROL TD SCH (10:00)
[2016-11-17] MEDS: PROTONIX PO SCH (10:00)
[2016-11-17] MEDS: NS/KCL 20MEQ 20 MEQ/1,000 ML BAG IV SCH (10:01)
== END 2016-11-17 14:47 | disposition home or self-care (01) | DRG 638 ==
LOC: ED 02:05 → CC1 05:00 → 3A 11-16 11:58
PROVIDERS: ADMIT Internal Medicine; ATTEND Internal Medicine
DX: E11.00 Type 2 diabetes mellitus with hyperosmolarity without nonketotic hyperglycemic-hyperosmolar coma (NKHHC) (principal); K27.3 Acute peptic ulcer, site unspecified, without hemorrhage or perforation; J45.909 Unspecified asthma, uncomplicated; E11.65 Type 2 diabetes mellitus with hyperglycemia; F31.9 Bipolar disorder, unspecified; F17.210 Nicotine dependence, cigarettes, uncomplicated; E66.9 Obesity, unspecified; E87.6 Hypokalemia; Z91.14 Patient's other noncompliance with medication regimen; Z68.34 Body mass index [BMI] 34.0-34.9, adult; Z83.3 Family history of diabetes mellitus; Z79.84 Long term (current) use of oral hypoglycemic drugs
CPT/HCPCS: 36415; 71010; 74176; 80048; 80074; 81001; 82010; 82805; 82947; 82962; 83036; 83690; 83735; 84100; 85025; 96361; 96374; 99291; 99406; J1644; J1815; J2405; J7030

== ENCOUNTER 2017-07-04 07:55 | Outpatient (CLI) | payer OTHER | END 2017-07-04 07:56 | disposition home or self-care (01) | LOC: PF 07:55 | PROVIDERS: ATTEND Internal Medicine | DX: J45.909 Unspecified asthma, uncomplicated (principal); R51 Headache; R42 Dizziness and giddiness; F20.9 Schizophrenia, unspecified; G56.00 Carpal tunnel syndrome, unspecified upper limb; F17.210 Nicotine dependence, cigarettes, uncomplicated | CPT/HCPCS: 94010 ==

== ENCOUNTER 2017-08-20 10:19 | Emergency (ER) | payer SELFPAY ==
[2017-08-20 12:39] LABS: Basophils # (Auto) 0.1 K/mm3 (0.0-0.1); Basophils % (Auto) 0.8 % (0.0-1.8); Eosinophils # (Auto) 0.3 K/mm3 (0.0-0.4); Eosinophils % (Auto) 2.8 % (0.0-4.3); Hematocrit 44.7 % (30.3-42.9); Hemoglobin 15.4 gm/dl (10.1-14.3); Lymphocytes # (Auto) 3.9 K/mm3 (1.2-5.4); Mean Corpuscular HGB Conc 35 % (30-34); Mean Corpuscular Hemoglobin 28 pg (28-32); Mean Corpuscular Volume 82 fl (79-97); Monocytes # (Auto) 0.4 K/mm3 (0.0-0.8); Monocytes % (Auto) 4.3 % (0.0-7.3); Platelet Count 225 K/mm3 (140-440); Red Blood Count 5.44 M/mm3 (3.65-5.03); Red Cell Distribution Width 14.8 % (13.2-15.2)
[2017-08-20 12:53] LABS: Alanine Aminotransferase 7 units/L (7-56); Albumin 4.2 g/dL (3.9-5); BUN/Creatinine Ratio 16; Blood Urea Nitrogen 8 mg/dL (7-17); Calcium 8.8 mg/dL (8.4-10.2); Hemolysis Index 7
[2017-08-20 13:35] LABS: Amorphous Crystals,Urine Few; Bacteria,Urine 1+ /HPF (Negative); Bilirubin,Urine NEG (Negative); Blood,Urine NEG (Negative); Color,Urine Yellow (Yellow); Mucus,Urine FEW /HPF; Nitrite,Urine NEG (Negative); Urobilinogen,Urine < 2.0 mg/dL (<2.0)
--- NOTE | 2017-08-20 19:07 | Emergency Department Report ---
ED Abdominal Pain HPI - General Chief Complaint: Abdominal Pain Stated Complaint: FLU LIKE SYMPTOMS Time Seen by Provider: 08/20/17 18:49 Source: patient Mode of arrival: Ambulatory Limitations: No Limitations - History of Present Illness Initial Comments: Mrs. Cohen is a 52-year-old female with history of hypertension diabetes who presents with 30 days of epigastric pain. Pain is mostly constant. She takes nexium daily for peptic ulcer disease. She states that maalox gives moderate relief but only transiently. Pain appears to be substituted with food intake. She denies any current chest pain. Patient also has left arm pain. She feels a strain in the left side of her neck which radiates to her arm. Sharp pain worse with movement She also feels an "airy feeling" in her left ear. MD Complaint: abdominal pain -: days(s) (30) Location: epigastric Radiation: none Severity: moderate Quality: aching Consistency: constant Improves With: other (maalox) Worsens With: eating Associated Symptoms: nausea. denies: vomiting Treatments Prior to Arrival: NSAIDs - Related Data Home Medications Medication Instructions Recorded Confirmed Last Taken ALBUTEROL Inhaler [ProAir HFA 2 puff IH QID PRN 11/15/16 11/15/16 11/14/16 Inhaler] Esomeprazole Magnesium [Nexium 20 mg PO DAILY 11/15/16 11/15/16 11/14/16 24Hr] metroNIDAZOLE [Flagyl TAB] 500 mg PO Q12HR 11/15/16 11/15/16 11/14/16 Previous Rx's Medication Instructions Recorded Last Taken Type Insulin Aspart Protam & Aspart 12 unit SQ BID #1 pen 11/17/16 Unknown Rx [NovoLOG Mix 70-30 Flexpen] Cyclobenzaprine [Flexeril] 10 mg PO TID PRN #20 tablet 08/20/17 Unknown Rx Allergies Allergy/AdvReac Type Severity Reaction Status Date / Time No Known Allergies Allergy Unverified 11/15/16 02:16 ED Review of Systems ROS: Stated complaint: FLU LIKE SYMPTOMS Other details as noted in HPI Comment: All other systems reviewed and negative Constitutional: denies: chills, malaise ENT: denies: ear pain, throat pain ED Past Medical Hx - Past Medical History Previous Medical History?: Yes Hx Hypertension: Yes Hx Congestive Heart Failure: No Hx Diabetes: Yes (Recent diagnosis) Hx Psychiatric Treatment: Yes (Bipolar) Hx Asthma: Yes Hx COPD: No Additional medical history: fibromyalgia, vertigo, carpal tunnel bilaterally - Surgical History Past Surgical History?: Yes Additional Surgical History: lasik bilaterally - Social History Smoking Status: Current Every Day Smoker Substance Use Type: None - Medications Home Medications: Home Medications Medication Instructions Recorded Confirmed Last Taken Type ALBUTEROL Inhaler [ProAir HFA 2 puff IH QID PRN 11/15/16 11/15/16 11/14/16 History Inhaler] Esomeprazole Magnesium [Nexium 20 mg PO DAILY 11/15/16 11/15/16 11/14/16 History 24Hr] metroNIDAZOLE [Flagyl TAB] 500 mg PO Q12HR 11/15/16 11/15/16 11/14/16 History Insulin Aspart Protam & Aspart 12 unit SQ BID #1 pen 11/17/16 Unknown Rx [NovoLOG Mix 70-30 Flexpen] Cyclobenzaprine [Flexeril] 10 mg PO TID PRN #20 tablet 08/20/17 Unknown Rx ED Physical Exam - General Limitations: No Limitations General appearance: alert, in no apparent distress - Head Head exam: Present: atraumatic, normocephalic - Eye Eye exam: Present: normal appearance, PERRL, EOMI - ENT ENT exam: Present: normal orophraynx, mucous membranes moist, TM's normal bilaterally - Neck Neck exam: Present: normal inspection. Absent: tenderness, meningismus - Respiratory Respiratory exam: Present: normal lung sounds bilaterally. Absent: respiratory distress, wheezes, rales, rhonchi, stridor - Cardiovascular Cardiovascular Exam: Present: regular rate, normal rhythm, normal heart sounds. Absent: bradycardia, tachycardia, systolic murmur, diastolic murmur, rubs, gallop - GI/Abdominal GI/Abdominal exam: Present: soft, normal bowel sounds. Absent: distended, tenderness, guarding, rebound - Extremities Exam Extremities exam: Present: normal inspection - Back Exam Back exam: Present: normal inspection, full ROM. Absent: tenderness - Neurological Exam Neurological exam: Present: alert, oriented X3 - Psychiatric Psychiatric exam: Present: normal affect, normal mood - Skin Skin exam: Present: warm, dry, intact, normal color. Absent: rash ED Course Vital Signs 08/20/17 12:05 Temperature 98.2 F Pulse Rate 73 Respiratory 18 Rate Blood Pressure 147/82 O2 Sat by Pulse 96 Oximetry ED Medical Decision Making - Lab Data Result diagrams: 08/20/17 12:19 08/20/17 12:19 Vital Signs - 24 hr 08/20/17 12:05 Temperature 98.2 F Pulse Rate 73 Respiratory 18 Rate Blood Pressure 147/82 O2 Sat by Pulse 96 Oximetry - Medical Decision Making Mrs. [place] presents with epigastric pain. I attribute this pain to PUD. She takes ibuprofen 800 mg tabs frequently for fibromyalgia. I have asked her to discontinue this medication. I recommended tylenol to pain. I also gave diet instructions. neck/left arm pain suspect musculoskeletal pain, recommended f/u with her [place] [facility] PCP for PT or MRI left ear sensation: no evidence of otitis media or perforation Critical care attestation.: If time is entered above; I have spent that time in minutes in the direct care of this critically ill patient, excluding procedure time. ED Disposition Clinical Impression: PUD (peptic ulcer disease), Abdominal pain, Left arm pain Disposition: TO HOME OR SELFCARE Is pt being admited?: No Does the pt Need Aspirin: No Condition: Good Instructions: Peptic Ulcer (ED), Cervical Radiculopathy (ED) Prescriptions: Cyclobenzaprine [Flexeril] 10 mg PO TID PRN #20 tablet PRN Reason: Muscle Spasm Referrals: PRIMARY CARE, [Primary Care Provider] - 3-5 Days
[2017-08-20 19:53] VITALS: BP 137/78
== END 2017-08-20 19:57 | disposition home or self-care (01) ==
LOC: ED 10:19
DX: K27.9 Peptic ulcer, site unspecified, unspecified as acute or chronic, without hemorrhage or perforation (principal); M79.602 Pain in left arm; I10 Essential (primary) hypertension; E11.9 Type 2 diabetes mellitus without complications; F17.200 Nicotine dependence, unspecified, uncomplicated; Z79.4 Long term (current) use of insulin
CPT/HCPCS: 36415; 80053; 81001; 85025; 99283

== ENCOUNTER 2019-05-17 17:57 | Emergency (ER) | payer SELFPAY ==
--- NOTE | 2019-05-17 18:45 | Emergency Department Report ---
Blank Doc - Documentation Documentation: 54 y/o female with DM presents to ED c/o dizziness, nausea, vomiting, chest pain and SOB his initial assessment/diagnostic orders/clinical plan/treatment(s) is/are subject to change based on patient's health status, clinical progression and re- assessment by fellow clinical providers in the ED. Further treatment and workup at subsequent clinical providers discretion. Patient/guardians urged not to elope from the ED as their condition may be serious if not clinically assessed and managed. Initial orders include: Cardio/abdomominal evaluation
[2019-05-17] MEDS ORDERED: ASPIRIN PO ONE (18:46)
--- NOTE | 2019-05-17 19:17 | XRay Report ---
CHEST 2 VIEWS INDICATION / CLINICAL INFORMATION: Chest Pain. COMPARISON: 11/15/16 FINDINGS: SUPPORT DEVICES: None. HEART / MEDIASTINUM: No significant abnormality. LUNGS / PLEURA: No significant pulmonary or pleural abnormality. No pneumothorax. ADDITIONAL FINDINGS: No significant additional findings. IMPRESSION: 1. No acute findings. No change. Signer Name: Estuardo Barnes MD Signed: 05/17/2019 7:12 PM Workstation Name: [id number]
--- NOTE | 2019-05-17 20:09 | Emergency Department Report ---
ED Dizziness HPI - General Chief Complaint: High BP Stated Complaint: DIZZY/HBP Time Seen by Provider: 05/17/19 18:44 Source: patient Mode of arrival: Ambulatory Limitations: No Limitations - History of Present Illness MD Complaint: dizziness -: Gradual, week(s) (approximately 3 days - 2 weeks of symptoms off and on. Similar symptoms 2 weeks ago. Reports evaluated in the ER without diagnosis. ) Timing: gradual onset Description: lightheadedness (intermittent. no symptoms currently in the ER. Patient reports she was worried about her glucose level) History of Same: Yes History of Trauma: No Severity: mild Improves With: nothing Worsens With: nothing Associated Symptoms: chest pain (Patient reports she has had chest pain in the last 2 weeks. No chest pain in the last few days. No symptoms currently in the ER. ), other (Epigastric pain over the past 2 weeks that feels like her known stomach ulcer. Reports no worsening of symptoms. No increase in frequency. No symptoms today. ) - Related Data Home Medications Medication Instructions Recorded Confirmed Last Taken ALBUTEROL Inhaler (OR & NICU) 2 puff IH QID PRN 11/15/16 11/15/16 11/14/16 [ProAir HFA Inhaler] Esomeprazole Magnesium [Nexium 20 mg PO DAILY 11/15/16 11/15/16 11/14/16 24Hr] metroNIDAZOLE [Flagyl TAB] 500 mg PO Q12HR 11/15/16 11/15/16 11/14/16 Previous Rx's Medication Instructions Recorded Last Taken Type Insulin Aspart Protam & Aspart 12 unit SQ BID #1 pen 11/17/16 Unknown Rx [NovoLOG Mix 70-30 Flexpen] Cyclobenzaprine [Flexeril] 10 mg PO TID PRN #20 tablet 08/20/17 Unknown Rx Azithromycin [Zithromax] 250 mg PO DAILY #6 tablet 05/23/18 Unknown Rx Ofloxacin [Ocuflox 0.3%] 1 - 2 drop OP Q6HR #1 bottle 05/23/18 Unknown Rx guaiFENesin [Robitussin] 200 mg PO TID #200 ml 05/23/18 Unknown Rx predniSONE [Deltasone] 20 mg PO DAILY #2 tablet 05/23/18 Unknown Rx Allergies Allergy/AdvReac Type Severity Reaction Status Date / Time No Known Allergies Allergy Verified 05/17/19 17:58 ED Review of Systems ROS: Stated complaint: DIZZY/HBP Other details as noted in HPI Other: GENERAL: No weight change, fatigue, fever, chills, or night sweats SKIN: No changes in skin or hair, no itching, no rashes, no jaundice HEAD: No trauma, headache, or visual changes EYES: No blurriness, tearing, itching, acute visual loss, conjunctival discoloration, or scleral icterus EARS: No hearing loss, tinnitus, vertigo, or earache NOSE: No rhinorrhea, stuffiness, sneezing, itching, or epistaxis MOUTH: No bleeding gums, hoarseness, sore throat, or swelling CARDIAC: Chest pain over past 2 weeks but none in past few days. 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 No new murmur, chest pain, palpitations, dyspnea on exertion, orthopnea, PND, or edema RESPIRATORY: No shortness of breath, wheeze, cough, sputum production, hemoptysis, pneumonia, asthma, bronchitis, or emphysema GI: Stomach pain similar to past history of known ulcer. Reports she would like to see GI. No change in appetite, nausea, vomiting, dysphagia, diarrhea, constipation, hematemesis, melena, hematochezia, or abdominal pain URINARY: No frequency, urgency, polyuria, dysuria, hematuria, or incontinence MUSCULOSKELETAL: No muscle weakness, joint stiffness, decrease in range of motion, redness, swelling NEUROLOGIC: Dizziness. No headache, syncope, loss of sensation, numbness, tingling, tremors, weakness, paralysis, seizures HEMATOLOGIC: No anemia, easy bruising, bleeding, petechiae, or purpura ENDOCRINE: No hot or cold intolerance, sweating, polyuria, polydipsia or, p olyphagia no thyroid problems ED Past Medical Hx - Past Medical History Hx Hypertension: Yes Hx Congestive Heart Failure: No Hx Diabetes: Yes (Recent diagnosis) Hx Psychiatric Treatment: Yes (Bipolar) Hx Asthma: Yes Hx COPD: No Additional medical history: fibromyalgia, vertigo, carpal tunnel bilaterally - Surgical History Additional Surgical History: lasik bilaterally - Social History Smoking Status: Current Every Day Smoker Substance Use Type: None - Medications Home Medications: Home Medications Medication Instructions Recorded Confirmed Last Taken Type ALBUTEROL Inhaler (OR & NICU) 2 puff IH QID PRN 11/15/16 11/15/16 11/14/16 History [ProAir HFA Inhaler] Esomeprazole Magnesium [Nexium 20 mg PO DAILY 11/15/16 11/15/16 11/14/16 History 24Hr] metroNIDAZOLE [Flagyl TAB] 500 mg PO Q12HR 11/15/16 11/15/16 11/14/16 History Insulin Aspart Protam & Aspart 12 unit SQ BID #1 pen 11/17/16 Unknown Rx [NovoLOG Mix 70-30 Flexpen] Cyclobenzaprine [Flexeril] 10 mg PO TID PRN #20 tablet 08/20/17 Unknown Rx Azithromycin [Zithromax] 250 mg PO DAILY #6 tablet 05/23/18 Unknown Rx Ofloxacin [Ocuflox 0.3%] 1 - 2 drop OP Q6HR #1 bottle 05/23/18 Unknown Rx guaiFENesin [Robitussin] 200 mg PO TID #200 ml 05/23/18 Unknown Rx predniSONE [Deltasone] 20 mg PO DAILY #2 tablet 05/23/18 Unknown Rx ED Physical Exam - General Limitations: No Limitations - Other Other exam information: GENERAL: Patient in no acute distress. Patient sitting up comfortably in the chair eating crackers with legs crossed. HEAD: Normocephalic, atraumatic EYES: PERRLA, EOM intact, no scleral icterus, no conjunctival hemorrhage, visual ramos and acuity wnl NOSE: No tenderness, discharge, sinus tenderness MOUTH: No erythema, bleeding, exudate HEART: Regular rate and rhythm, no murmur, S1-S2 are auscultated, no edema, pulses are symmetric LUNGS: No respiratory distress. Bilateral breath sounds, No tachypnea, No retractions, No wheezing, rales, rhonchi ABDOMEN: Normal bowel sounds, abdomen soft, no tenderness, no rebound, no guarding, no distention, no masses, no CVA tenderness MUSCULOSKELETAL: Normal joint range of motion, no redness, no swelling, no tenderness NEUROLOGIC: GCS 15, Alert and Oriented x3, Cranial nerves intact, normal sensation, normal strength, no cerebellar deficit, NIHSS 0 SKIN: Skin is warm and dry, no wounds, no rashes ED Course Vital Signs 05/17/19 18:44 Temperature 98.6 F Pulse Rate 80 Respiratory 16 Rate Blood Pressure 126/72 O2 Sat by Pulse 99 Oximetry ED Medical Decision Making - Lab Data Laboratory Results - last 24 hr 05/17/19 18:10 POC Glucose 183 H - EKG Data EKG shows normal: sinus rhythm - EKG Data When compared to previous EKG there are: no significant change - Radiology Data Radiology results: report reviewed - Medical Decision Making Patient comfortable. Reports symptom improvement. Updated with results. Discussed follow up with GI and cardiology for evaluation symptoms over past 2 weeks. Plan discharge with outpatient follow up. Agrees to return if any worsening. Critical care attestation.: If time is entered above; I have spent that time in minutes in the direct care of this critically ill patient, excluding procedure time. ED Disposition Clinical Impression: Dizziness Disposition: DC-01 TO HOME OR SELFCARE Is pt being admited?: No Condition: Stable Instructions: Dizziness (ED) Referrals: [facility] [Provider Group] - 2-3 Days GARCÍA DACOSTA MD [Staff Physician] - 2-3 Days RJEI GAMBOA DO [Staff Physician] - as needed Time of Disposition: 20:14
[2019-05-17 21:02] VITALS: BP 134/70
== END 2019-05-17 21:04 | disposition home or self-care (01) ==
LOC: ED 17:57
DX: R42 Dizziness and giddiness (principal); R07.9 Chest pain, unspecified
CPT/HCPCS: 36415; 71046; 82962; 93005; 93010